=== PATIENT | female | born 1940 | race Caucasian/White ===

== ENCOUNTER → 2017-08-31 | Day surgery (SDC) | payer OTHER, MEDICARE ==
[~2017-08-31] VITALS: Ht 162.6 cm; Wt 98.0 kg
[~2017-08-31] MED LIST: ACTOS30 M1 PO; CARVEDILOL6.25 M1 PO; CRESTOR10 M1 PO; INVOKANA100 M1 PO; LOSARTAN-HCTZ1 EAC2 PO; NIFEDIPINE ER90 M2 PO; ST. JOSEPH ASPI81 M1 PO
--- NOTE | 2017-08-31 14:09 | RADIOLOGY REPORT ---
EXAMINATION: CR ABDOMEN/INTRAOPERATIVE FLUOROSCOPY CLINICAL INDICATION: InterStim insertion in OR. COMPARISON: None TECHNIQUE/FINDINGS: Fluoroscopic equipment was dedicated to the operating room for the performance of an intraoperative procedure. Several (2) spot films were acquired and are archived in PACS. Please refer to operative notes for procedural detail. FLUOROSCOPY TIME: 38 seconds. IMPRESSION: Administrative dictation for intraoperative fluoroscopy and image archiving in PACS. Please refer to operative notes for details.
--- NOTE | 2017-08-31 15:54 | Operative Report ---
Operative/Inv Procedure Report Surgery Date: 08/31/17 Name of Procedure: interstim grade 1 and 2, sacral neuromodulation Pre-Operative Diagnosis: frequency, nocturia and UUI Post-Operative Diagnosis: same Estimated Blood Loss: less than 50ml Surgeon/Environmental Health Manager: Ernestina Griffin MD Anesthesia: local monitored anesthesi Implants: interstim lead and battery Complications: none Condition: stable Operative Indication: frequency, nocturia, urge incontinence Operative/Procedure Note Note: 77yo female with a history of frequency, nocturia, and urge incontinence. She had a good percutaneous trial and wished to proceed with the implant. She was given the risks, benefits and alternatives of the procedure. All questions were answered. She was consented in the holding area. Literature on the procedure was given. Patient was taken to the operating room and time out was performed. She was placed in the prone position and optimally positioned. IV antibiotics were infused and IV sedation was started. She was prepped and draped in the standard sterile fashion with chloraprep and ioban. The flouroscopy was used throughout the case with AP and lateral views. The anatomy landmarks were marked out. The needle was placed into the presumed S3 foramen. The needle was placed at 14cm superior from the coccyx and 2cm lateral to the marked midline site and found to be in good position. This site was chosed from the percuatneous trial she had. She had excellent sensory in vagina and minimal motor response. The incision site was dilated and the lead was placed. The leads were checked and again with excellent motor and sensory response. The pocket in the right upper outer quadrant of the buttock was created. The centrifugal casting machine operator was used to place the lead into the pocket. The lead was cleansed and placed into the battery. The battery was placed into the pocket and the impedence checked and to be in good working order. The incistion site was closed with 3-0 vicryl interrupted suture followed by 4-0 monocryl then dermabond. Tegaderm was then used to cover the incision sites. The sponge and needle count were correct at the end of the case. The patient tolerated the procedure well. She was transferred to the recovery in stable condtion. Findings: good sensory response in th vagina without sensation down the leg Discharge Disposition: Same Day Admissions
== END ==
LOC: STS 07-06 07:00
DX: N32.81 Overactive bladder (principal); R35.0 Frequency of micturition; R35.1 Nocturia; E11.9 Type 2 diabetes mellitus without complications; I10 Essential (primary) hypertension; N39.41 Urge incontinence
CPT/HCPCS: 72220; C1767; C1778; C1787; C1894; J0690; J2250